=== PATIENT | male | born 2000 | race Caucasian/White ===

== ENCOUNTER 2022-08-09 03:02 | Emergency (ER) | payer SELFPAY ==
[2022-08-09 03:11] VITALS: BP 118/77; PULSE 88; RESP 16; TEMP 37; O2SAT 98
--- NOTE | 2022-08-09 03:25 | ED_ITS ---
HPI - General Adult General Date Seen: 08/09/22 Chief complaint: Headache/Migraine Stated complaint: headache Time Seen by Provider: 08/09/22 03:05 Source: patient History of Present Illness HPI narrative: Patient is a 22-year-old who reports long history of migraine headaches. He says that he will often have headaches that last days or 1-2 weeks, but he says for the past month he has been dealing with a headache that has been ongoing. It has come and gone to some degree but has been coming back nearly daily. Overnight tonight he has had sharper pain, nausea, and the persistence of this headache worried him to the point that he came in. He says that he wants to know why he is having a more persistent headache. He says he has never taken anything for his headaches. He says he has got a ?phobia about taking pills as he says he seems to always have side effects from. So he just put up with his headaches until they go away on their own. There is nothing else unusual about this headache. It is frontal, associated with photophobia, nausea, and occasional vomiting. He has not had fevers, trauma, focal neurologic signs. He denies other medical history. He smokes and also uses marijuana daily. He says that he is marijuana use helps with his headaches. He denies other substances. Related Data Previous Rx's Medication Instructions Recorded sumatriptan succinate 50 mg tablet 50 mg PO Q2-4H PRN migraine 08/09/22 (Imitrex) headache #4 tabs Allergies Allergy/AdvReac Type Severity Reaction Status Date / Time No Known Drug Allergies Allergy Verified 08/09/22 03:13 Review of Systems Status of ROS: Reports: 10 or more systems reviewed and unremarkable except as noted in History and below [facility] Medical History No significant past medical history Surgical History No significant past surgical history Social History Smoking Status: Current every day smoker Do you use any of these nicotine containing products: None How often do you have a drink containing alcohol: 2-4 times a month How often do you have six or more drinks on one occasion: Never AUDIT-C Alcohol total score: 2 Non-prescribed substance use: former substance user Non-prescribed substance use details: thc - any method Exam Narrative: Exam Narrative: Vital signs as noted above. In general, an alert, well-appearing patient. Head: Normocephalic, atraumatic. Eyes: Pupils are equal reactive. Extraocular movements are full. Conjunctivae are normal. ENT: Mucous membranes are moist. Throat is normal. Neck: Supple without lymphadenopathy. Heart: Regular rate and rhythm. No murmur or rub. Lungs: Clear bilaterally. No increased work of breathing, crackles or wheezes. Abdomen: Soft and nontender. No organomegaly. Extremities: Well perfused. No edema. No calf tenderness. Pulses intact. Neurologic: Patient is alert and oriented to person and place. Speech is fluent. Face is symmetric. Moves all extremities equally. Affect: Normal. Skin: Warm and dry. Well perfused. Const: Vital Signs, click to edit/add: Vital Signs - 24 hr 08/09/22 03:11 Temperature 98.6 F Pulse Rate [Right Pulse Oximeter] 88 Respiratory Rate 16 Blood Pressure [Le ft Upper Arm] 118/77 Pulse Oximetry 98 Oxygen Delivery Me thod Room Air Course Course Hospital Course: Discussed with him that I will likely not be able to explain why he is having a change in his pattern of migraine headaches as that can be a difficult question to answer. Many factors including sleep, stress, diet, among others can contribute to migraine threshold, and I am not probably going to be able to tell him why he has had a shift in his migraine threshold. Given the absence of red flags such as focal neurologic findings, fever, or trauma, I do not think imaging is needed tonight. Did discuss with him that sometimes imaging is done on an outpatient basis, but typically MRI is the test of choice which is not something that I have available to me overnight tonight. After conversation, he did agree to have some medications here in the ER to see if we can help abort this headache. I have also encouraged him to follow up with somebody in clinic to discuss medications to use on an outpatient basis for headache treatment. I have discussed with him that I think they are most certainly is a medication that he could use to help abort his headaches and hopefully 1 that he would be able to tolerate the side effect profile in exchange for not having headache that lasts days to weeks. I can prescribe a triptan for him to try though he may find the side effect profile of that medication class problematic. Headache improved. Patient feels comfortable with discharge. Imitrex prescribed to try, primary care followup if not effective or side effects not tolerable. Return as needed for severe Vital Signs Vital signs: Initial Vital Signs Temperature 98.6 F 08/09/22 03:11 Temperature Source Temporal Artery Scan 08/09/22 03:11 Pulse Rate 88 08/09/22 03:11 Respiratory Rate 16 08/09/22 03:11 Blood Pressure 118/77 08/09/22 03:11 Blood Pressure Mean 90 08/09/22 03:11 Blood Pressure Position Sitting 08/09/22 03:11 Pulse Oximetry 98 08/09/22 03:11 Oxygen Delivery Method 08/09/22 03:11 Vital Signs Temperature 98.6 F 08/09/22 03:11 Pulse Rate 88 08/09/22 03:11 Respiratory Rate 16 08/09/22 03:11 Blood Pressure 118/77 08/09/22 03:11 Pulse Oximetry 98 08/09/22 03:11 Oxygen Delivery Method 08/09/22 03:11 Temperature 98.6 F 08/09/22 03:11 Pulse Rate 88 08/09/22 03:11 Respiratory Rate 16 08/09/22 03:11 Blood Pressure 118/77 08/09/22 03:11 Pulse Oximetry 98 08/09/22 03:11 Oxygen Delivery Method 08/09/22 03:11 Discharge Plan Discharge Clinical Impression: Migraine Patient Disposition: Home, Self-Care Condition: Improved Instructions: Migraine Headache (ED) Additional Instructions: Try Imitrex as needed the next time you have a migraine coming on. If it is not effective or you do not like the side effects, you can work with the primary care doctor to find a different medication that is effective for you return as needed for severe headache. Prescriptions: New sumatriptan succinate [Imitrex] 50 mg tablet 50 mg PO Q2-4H PRN (Reason: migraine headache) Qty: 4 0RF Rx Instructions: do not exceed 4 doses per 24 hrs Follow Up/Referrals: Provider,Not a Local [Primary Care Provider] - Stand Alone Forms: [facility] Info Instructions
[2022-08-09] MEDS: METHYLPREDNISOLONE SOD SUCC 62.5 MG/ML (125) 125 MG IVP (03:45)
[2022-08-09] MEDS: KETOROLAC 15 MG/ML inj IVP (03:45)
[2022-08-09] MEDS: diphenhydrAMINE 50 MG/ML inj 25 MG IVP (03:45)
[2022-08-09] MEDS: 0.9 % SODIUM CHLORIDE 1000 ml 1,000 ML IV (03:46)
[2022-08-09] MEDS: ONDANSETRON 2 MG/ML inj 4 MG IVP (03:46)
[2022-08-09 05:03] VITALS: BP 112/66; PULSE 80; RESP 14
== END 2022-08-09 05:04 | disposition home or self-care (01) ==
PROVIDERS: Emergency Provider Emergency Medicine
DX: G43.909 Migraine, unspecified, not intractable, without status migrainosus (principal)
CPT/HCPCS: 96374; 96375; 99284; J1200; J1885; J2405; J2930; J7030

== ENCOUNTER 2023-02-04 05:58 | Emergency (ER) | payer SELFPAY ==
[2023-02-04] VITALS (17 sets, daily range): BP systolic 115–138; BP diastolic 75–91; PULSE 88–104; RESP 16; TEMP 36.2; O2SAT 96–99
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
[2023-02-04 06:44] LABS: Appearance Urine Clear (Clear); Bilirubin Urine Negative (Negative); Blood Urine Negative (Negative); Color Urine Yellow (Yellow); Glucose Urine Negative (Negative); Ketones Urine Negative (Negative); Leukocyte Esterase Urine Negative (Negative); Nitrite Urine Negative (Negative); Protein Urine Negative (Negative); Specific Gravity Urine 1.025 (1.000-1.030)
[2023-02-04 06:53] LABS: RBC Urine 0-2 (0-2); Squamous Epithelial Cell Urine Few (None-Few); WBC Urine 0-2 (0-5)
[2023-02-04] MEDS: 0.9 % SODIUM CHLORIDE 1000 ml 1,000 ML IV (07:06)
[2023-02-04] MEDS: fentaNYL 100 MCG/2 ML inj 50 MCG IVP (07:07)
== END 2023-02-04 08:50 | disposition home or self-care (01) ==
PROVIDERS: Emergency Provider Family Medicine
DX: S16.1XXA Strain of muscle, fascia and tendon at neck level, initial encounter (principal); S20.219A Contusion of unspecified front wall of thorax, initial encounter; V49.9XXA Car occupant (driver) (passenger) injured in unspecified traffic accident, initial encounter
CPT/HCPCS: 71260; 72125; 73110; 74177; 81001; 94761; 96374; 96375; 99284; 99291; J3010; J7030; Q9967